=== PATIENT | male | born 1975 | race Caucasian/White ===

== ENCOUNTER 2018-02-11 17:06 | Emergency (ER) | payer SELFPAY ==
[~2018-02-11] VITALS: Ht 165.1 cm; Wt 71.2 kg
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
[2018-02-11] MEDS ORDERED: IBUPROFEN 600 MG TABLET PO ONE ×2 (17:26→17:30)
--- NOTE | 2018-02-11 17:28 | NUR ---
CUTTER GAS AT BEDSIDE.
[2018-02-11 18:15] VITALS: BP 122/74
--- NOTE | 2018-02-11 18:16 | NUR ---
ANTHONY wrap applied to right foot/ankle. Patient discharged to home in stable condition. Written and verbal after care instructions given. Patient verbalizes understanding of instruction.
== END 2018-02-11 18:15 | disposition home or self-care (01) ==
LOC: ER 17:07
DX: S97.01XA Crushing injury of right ankle, initial encounter (principal); W20.8XXA Other cause of strike by thrown, projected or falling object, initial encounter; Y93.89 Activity, other specified; Y92.89 Other specified places as the place of occurrence of the external cause; Y99.8 Other external cause status
CPT/HCPCS: 73610; 73630; 99284; A4606; Z7610

== ENCOUNTER 2024-12-19 19:48 | Emergency (ER) | payer MEDICAID ==
[~2024-12-19] VITALS: Ht 162.6 cm; Wt 68.0 kg
[2024-12-19 20:54] LABS: PLATELET COUNT (AUTO) 378 K/uL (150-450); RED BLOOD CELL COUNT(AUTO) 4.93 MIL/uL (4.5-6.0); RED CELL DISTRIBUTION WIDTH 12.7 % (11.5-15.0); WHITE BLOOD COUNT (AUTO) 6.7 K/uL (4.3-11.0)
[2024-12-19 21:01] LABS: CALCIUM, SERUM 8.5 mg/dL (8.5-10.1); CREATININE 0.9 mg/dL (0.6-1.3); SODIUM SERUM 137.0 mmol/L (136-145); UREA NITROGEN, BLOOD 19.0 mg/dL (7-18)
[2024-12-19 21:15] LABS: ASPARTATE AMINOTRANSFERASE 15.0 U/L (15-37); NT-PRO BNP 14.0 pg/mL (0-125); TOTAL PROTEIN, SERUM 8.1 g/dL (6.4-8.2)
[2024-12-19 21:18] LABS: INR 0.94 (0.91-1.10)
[2024-12-19] MEDS ORDERED: KETOROLAC TROMETHAMINE 15 MG/ML VIAL ONE (21:47)
[2024-12-19] MEDS: KETOROLAC TROMETHAMINE 15 MG/ML VIAL IV ONE (21:48)
[2024-12-19] MEDS ORDERED: KETO10TA2 PO (21:48)
[2024-12-19 22:35] VITALS: BP 126/76; TEMP 99.3; O2SAT 98
== END 2024-12-19 22:35 | disposition home or self-care (01) ==
LOC: ER 19:54
DX: R07.89 Other chest pain (principal); R06.02 Shortness of breath
CPT/HCPCS: 99285; 96374; 71045; 93005; 85025; 80048; 80076; 36415; 84484; 85730; 83880; J1885